=== PATIENT | female | born 1985 | race Caucasian/White ===

== ENCOUNTER 2022-10-25 07:55 | Emergency (ER) | payer OTHER ==
[2022-10-25 08:12] VITALS: BP 129/80; PULSE 80; RESP 18; TEMP 97.9; BMI 27.7
[2022-10-25] MEDS ORDERED: KETOROLAC TROMETHAMINE 30 MG/1 ML VIAL IM ONE (08:36)
[2022-10-25] MEDS ORDERED: ONDANSETRON *ODT* 4 MG TABLET SL ONE (08:52)
[2022-10-25] MEDS ORDERED: KETOROLAC TROMETHAMINE 30 MG/1 ML VIAL ONE (09:05)
== END 2022-10-25 09:29 | disposition home or self-care (01) ==
LOC: JER 07:55
PROC: 3E0233Z Introduction of Anti-inflammatory into Muscle, Percutaneous Approach (ICD-10-PCS; principal; 2022-10-25)
DX: S13.4XXA Sprain of ligaments of cervical spine, initial encounter (principal); R11.0 Nausea; M79.10 Myalgia, unspecified site; N64.4 Mastodynia; M54.2 Cervicalgia; V49.40XA Driver injured in collision with unspecified motor vehicles in traffic accident, initial encounter; Y93.I9 Activity, other involving external motion
CPT/HCPCS: 71046-TC-FY; 99284-25